=== PATIENT | male | born 1980 | race Caucasian/White ===

== ENCOUNTER 2017-04-23 13:19 | Emergency (ER) | payer SELFPAY ==
[~2017-04-23 13:19] MED LIST: AUGM875T PO; LOPR50TA12 PO; ULTR50TA PO
[2017-04-23 13:24] VITALS: BP 138/83; PULSE 65; RESP 20; TEMP 98.6; O2SAT 97
[2017-04-23] MEDS ORDERED: AMOX875T2 PO (14:32)
[2017-04-23] MEDS ORDERED: CHLO.12%30 SWISH-SPIT (14:32)
--- NOTE | 2017-04-23 14:34 | PD ---
HPI Chief Complaint: Oral / Dental Pain or Problem Time Seen by Provider: 14:15 Travel History International Travel<30 days: No Contact w/Intl Traveler<30days: No Traveled to known affect area: No History of Present Illness HPI 36-year-old male patient presents emergency department for evaluation of right lateral cheek swelling and dental pain. Patient states he woke up this morning with the symptoms. Patient denies any fevers or chills, malaise. Patient denies any chest pain, shortness of breath, nausea, vomiting, diarrhea, abdominal pain. Patient states he has had issues with his teeth and dentalgia in the past. He is going to follow up with a dentist but is unable to right now due to financial constraints. PFSH Past Medical History Blood Disorders: No Anxiety: No Depression: No Cancer: No Cardiovascular Problems: No Cerebrovascular Accident: No Diminished Hearing: No Endocrine: No Gastrointestinal Disorders: Yes GERD: Yes Genitourinary: Yes Headaches: No Immune Disorder: No Kidney Stones: Yes Medical other: Yes (GERD) Musculoskeletal: No Neurologic: Yes (BRAIN SURGERY) Psychiatric: No Reproductive: No Respiratory: No Immunizations Current: Yes Migraines: No Renal Failure: No Seizures: Yes (UP TILL 11) Past Surgical History Abdominal Surgery: No AICD: No Arteriovenous Shunt: No Cardiac Surgery: No Ear Surgery: No Endocrine Surgery: No Eye Surgery: No Genitourinary Surgery: Yes (CYSTO) Gynecologic Surgery: No Insulin Pump: No Joint Replacement: No Neurologic Surgery: Yes (BRAIN - AGE 9) Oral Surgery: No Pacemaker: No Thoracic Surgery: No Other Surgery: Yes (BRAIN SURGERY AT AGE 9) Social History Alcohol Use: No Tobacco Use: No Substance Use: No Allergies-Medications (Allergen,Severity, Reaction): Coded Allergies: No Known Allergies (Verified Adverse Reaction, Unknown, 04/23/17) Reported Meds & Prescriptions Reported Meds & Active Scripts Active Chlorhexidine Gluconate (Mouth) Liq (Chlorhexidine Gluconate) 0.12% Soln 15 Ml SWISH-SPIT BID Amoxicillin-Clavulanate 875-125 mg Tab 875 Mg PO BID 7 Days not for use in CrCl <30 mL/minute Review of Systems Except as stated in HPI: all other systems reviewed are Neg Physical Exam Narrative GENERAL: Well-nourished, well-developed 36-year-old male patient in no acute distress. Nontoxic appearing. SKIN: Focused skin assessment warm/dry. HEAD: Normocephalic. Atraumatic. EYES: No scleral icterus. No injection or drainage. MOUTH: Indurated abscess noted to the right upper inner cheek with surrounding gingival edema and erythema. NECK: Supple, trachea midline. No JVD or lymphadenopathy. CARDIOVASCULAR: Regular rate and rhythm without murmurs, gallops, or rubs. RESPIRATORY: Breath sounds equal bilaterally. No accessory muscle use. GASTROINTESTINAL: Abdomen soft, non-tender, nondistended. MUSCULOSKELETAL: No cyanosis, or edema. . Data Data Last Documented VS Vital Signs Date Time Temp Pulse Resp B/P (MAP) Pulse Ox O2 Delivery O2 Flow Rate FiO2 04/23/17 13:24 98.6 65 20 138/83 (101) 97 Orders Orders Ed Discharge Order (04/23/17 14:34) MDM Medical Decision Making Medical Screen Exam Complete: Yes Emergency Medical Condition: Yes Differential Diagnosis Differential diagnoses include but not limited to dentalgia, dental abscess, gingivitis, pulpitis, cavities Narrative Course Upon assessment it was noted that the patient has an indurated abscess to the right upper inner cheek with surrounding gingival edema and erythema. Patient was given a prescription for Augmentin and chlorhexidine mouthwash and instructions to follow up with a dentist or return to the emergency Department with any worsening condition. Diagnosis Primary Impression: Dental abscess Referrals: [facility] Patient Instructions: Dental Abscess (ED), General Instructions Additional Instructions: Please return to emergency department if your symptoms return or worsen. Follow up with your primary care provider. Take medications as prescribed. Med/Other Pt SpecificInfo: Prescription(s) given Scripts Chlorhexidine Gluconate (Mouth) Liq (Chlorhexidine Gluconate (Mouth) Liq) 0.12% Soln 15 ML SWISH-SPIT BID, #473 ML 0 Refills Prov: Pooja Mai 04/23/17 Amoxicillin-Clavulanate (Amoxicillin-Clavulanate) 875-125 mg Tab 875 MG PO BID for Infection for 7 Days, TAB 0 Refills not for use in CrCl <30 mL/minute Prov: Pooja Mai 04/23/17 Disposition: 01 DISCHARGE HOME Condition: Stable Pooja Mai Apr 23, 2017 14:33
== END 2017-04-23 14:39 | disposition home or self-care (01) ==
LOC: PHED 13:19 → PHEFT 14:39
DX: K04.7 Periapical abscess without sinus (principal)
CPT/HCPCS: 99283

== ENCOUNTER 2017-06-29 13:34 | Emergency (ER) | payer SELFPAY ==
[~2017-06-29] VITALS: Ht 180.3 cm; Wt 74.9 kg
[~2017-06-29 13:34] MED LIST changes: +AMOX875T2 PO; -AUGM875T PO; +CHLO.12%30 SWISH-SPIT; -LOPR50TA12 PO; -ULTR50TA PO
[2017-06-29 13:41] VITALS: BP 120/66; PULSE 56; RESP 16; TEMP 98.1; O2SAT 96
--- NOTE | 2017-06-29 15:34 | RADRPT ---
EXAM DATE/TIME: 06/29/2017 14:54 [facility] COMPARISON: No previous studies available for comparison. INDICATIONS : Left ankle pain with no recent injury. Patient states he has had surgery on this ankle before & has a lways had pain but this is a different pain. MEDICAL HISTORY : Gastroesophageal reflux disease. Renal calculi. SURGICAL HISTORY : ORIF left ankle ENCOUNTER: Initial ACUITY: 1 week PAIN SCORE: 8/10 LOCATION: Left ankle FINDINGS: There is a lateral fibular plate extending from distal shaft to malleolus. There are 4 short and 3 l alisha screws. The inferior most screw is fractured in its midportion with some separation, but no angu lation. There is also a lag screw across the medial malleolus. Bony structures are in normal alignm ent. There is fusion of the intraosseous region distal tibia and fibula. No significant soft tissue swelling. CONCLUSION: 1. No evidence of acute bony injury. 2. One of the long transverse screws in the lateral fibular plate is fractured in its midportion. Miguel Angel De Leon MD on June 29, 2017 at 15:31 Board Certified Radiologist. This report was verified electronically.
--- NOTE | 2017-06-29 15:56 | PD ---
HPI Chief Complaint: Musculoskeletal Complaint Time Seen by Provider: 14:33 Travel History International Travel<30 days: No Contact w/Intl Traveler<30days: No Traveled to known affect area: No History of Present Illness HPI This is a 37-year-old male here with left ankle pain last 3 days. He denies injury or trauma. No fever chills. He had a prior ORIF left ankle several years ago. He reports pain is worse with weightbearing and slightly relieved with rest. Severity is moderate. PFSH Past Medical History Blood Disorders: No Anxiety: No Depression: No Cancer: No Cardiovascular Problems: No Cerebrovascular Accident: No Diminished Hearing: No Endocrine: No Gastrointestinal Disorders: Yes GERD: Yes Genitourinary: Yes Headaches: No Immune Disorder: No Kidney Stones: Yes Medical other: Yes (GERD) Musculoskeletal: No Neurologic: Yes (BRAIN SURGERY) Psychiatric: No Reproductive: No Respiratory: No Immunizations Current: Yes Migraines: No Renal Failure: No Seizures: Yes (UP TILL 11) ?: Not Past Surgical History Abdominal Surgery: No AICD: No Arteriovenous Shunt: No Cardiac Surgery: No Ear Surgery: No Endocrine Surgery: No Eye Surgery: No Genitourinary Surgery: Yes (CYSTO) Gynecologic Surgery: No Insulin Pump: No Joint Replacement: No Neurologic Surgery: Yes (BRAIN - AGE 9) Oral Surgery: No Pacemaker: No Thoracic Surgery: No Other Surgery: Yes (BRAIN SURGERY AT AGE 9) Social History Alcohol Use: No Tobacco Use: No Substance Use: No Allergies-Medications (Allergen,Severity, Reaction): Coded Allergies: No Known Allergies (Verified Adverse Reaction, Unknown, 06/29/17) Reported Meds & Prescriptions Reported Meds & Active Scripts Active Chlorhexidine Gluconate (Mouth) Liq (Chlorhexidine Gluconate) 0.12% Soln 15 Ml SWISH-SPIT BID Amoxicillin-Clavulanate 875-125 mg Tab 875 Mg PO BID 7 Days not for use in CrCl <30 mL/minute Review of Systems Except as stated in HPI: all other systems reviewed are Neg General / Constitutional: No: Fever Physical Exam Narrative GENERAL: Alert and well-appearing 37-year-old male SKIN: Warm and dry. HEAD: Normocephalic. NECK: Supple CARDIOVASCULAR: Regular rate and rhythm RESPIRATORY: Breath sounds equal bilaterally. No accessory muscle use. GASTROINTESTINAL: Abdomen soft, non-tender, nondistended. MUSCULOSKELETAL: No cyanosis. Left lower extremity: Patient reports pain within the left ankle. No specific point tenderness. The joint is stable. No warmth or erythema. 2+ dorsal pedis pulse. Normal sensation. Brisk cap refill. Data Data Last Documented VS Vital Signs Date Time Temp Pulse Resp B/P (MAP) Pulse Ox O2 Delivery O2 Flow Rate FiO2 06/29/17 13:41 98.1 56 16 120/66 (84) 96 Orders Orders Ankle, Complete (Fab1lwc) (06/29/17 ) Splint Or Brace Apply/Monitor (06/29/17 15:57) Ketorolac Inj (Toradol Inj) (06/29/17 16:00) Ed Discharge Order (06/29/17 15:58) [facility] Medical Decision Making Medical Screen Exam Complete: Yes Emergency Medical Condition: Yes Differential Diagnosis Fracture, strain/sprain, contusion Narrative Course 37-year-old male here with nontraumatic left ankle pain 3 days. Patient had prior ORIF of the ankle. He denies fever or chills. The extremity is neurovascular intact. No evidence of infection. X-ray left ankle: 1. No evidence of acute bony injury. 2. One of the long transverse screws in the lateral fibular plate is fractured in its midportion Discussed findings with patient. Stirrup and crutches supplied. He is to follow-up with orthopedic doctor. Diagnosis Primary Impression: Ankle pain Qualified Codes: M25.572 - Pain in left ankle and joints of left foot Referrals: Orthopedist Additional Instructions: Ice and elevate the extremity Follow-up with her orthopedic doctor. Ibuprofen 800 mg every 6 hours as needed for pain. Disposition: 01 DISCHARGE HOME Condition: Stable DerekDevi raymundo Meka SALINAS Jun 29, 2017 15:56
[2017-06-29] MEDS ORDERED: KETOROLAC TROMETHAMINE 60 MG/2 ML (IM) VIAL IM ONE (16:00)
== END 2017-06-29 16:33 | disposition home or self-care (01) ==
LOC: PHED 13:34 → PHEFT 16:33
DX: M25.572 Pain in left ankle and joints of left foot (principal); K21.9 Gastro-esophageal reflux disease without esophagitis; R56.9 Unspecified convulsions; Z87.442 Personal history of urinary calculi
CPT/HCPCS: 73610; 96372; 99283; J1885; L1906